=== PATIENT | female | born 1945 | race Caucasian/White ===

== ENCOUNTER 2020-01-07 13:27 | Outpatient (REF) | payer SELFPAY | END 2020-01-07 13:28 | disposition home or self-care (01) | LOC: HO.HAP 13:27 | PROVIDERS: Visit Provider Internal Medicine | DX: Z46.1 Encounter for fitting and adjustment of hearing aid (principal) ==

== ENCOUNTER 2020-05-24 08:03 | Outpatient (REF) | payer SELFPAY ==
--- NOTE | 2020-05-24 08:23 | MHC.AU.P13 ---
Hearing Instrument Maintenance Date of Visit: 05/24/20 Right Ear: Chainstitch Pants Outseamer: [employer] Model: AUDEO M70R Serial Number: [id number] Repair Warranty: 08/11/2022 ORIGINAL WARRANTY Loss and Damage Warranty: 08/11/2022 Battery Size: Rechargeable Color: CHAMPAGNE Duck Operator: 0M Type of Wax Guard: CERUSHIELD Left Ear: Chainstitch Pants Outseamer: [employer] Model: AUDEO M70R Serial Number: [id number] RepairWarranty: 08/11/2022 ORIGINAL WARRANTY Loss and Damage Warranty: 08/11/2022 Battery Size: Rechargeable Color: [place] Duck Operator: OM Type of Wax Guard: CERUSHIELD Follow-Up Summary: RON MAINT - Hearing aids cleaned, wax guards and open domes replaced - both amplifying clearly. Signature: Provider: DENNISE Kong-HIS
== END 2020-05-24 08:04 | disposition home or self-care (01) ==
LOC: HO.HAP 08:03
PROVIDERS: Visit Provider Internal Medicine
DX: Z13.89 Encounter for screening for other disorder (principal)

== ENCOUNTER 2020-11-29 08:42 | Outpatient (REF) | payer SELFPAY ==
--- NOTE | 2020-11-29 08:59 | MHC.AU.P13 ---
Hearing Instrument Problem Date of Visit: 11/29/20 Right Ear: Eyeglass Frame Truer: Phonak Model: AUDEO M70R Serial Number: [id number] Repair Warranty: 08/11/2022 ORIGINAL WARRANTY Loss and Damage Warranty: 08/11/2022 Battery Size: Rechargeable Color: [place]AMPAGNE Ict Help Desk Officer: 0M Type of Dome: SMALL OPEN Type of Wax Guard: CERUSHIELD Dispensed By: [facility] Date of Fittin05/28/2019 Left Ear: Eyeglass Frame Truer: Phonak Model: AUDEO M70R Serial Number: [id number] Repair Warranty: 08/11/2022 ORIGINAL WARRANTY Loss and Damage Warranty: 08/11/2022 Battery Size: Rechargeable Color: [place]AMPAGNE Ict Help Desk Officer: OM Type of Dome: MEDIUM OPEN Type of Wax Guard: CERUSHIELD Dispensed By: [facility] Date of Fittin05/28/2019 Follow-Up Summary: Aids brought in - right does not show lights when charging, although does charge - sent to [employer] for in warranty repair. Left aid cleaned, wax guard and medium open dome changed - amplifying clearly - given back to patient with flash welder. Recommendations: Recommendations: Patient will be contacted when materials have arrived. Signature: Provider: DENNISE Kong-HIS
== END 2020-11-29 08:43 | disposition home or self-care (01) ==
LOC: HO.HAP 08:42
PROVIDERS: Visit Provider Internal Medicine
DX: Z13.89 Encounter for screening for other disorder (principal)

== ENCOUNTER 2020-12-07 13:57 | Outpatient (REF) | payer SELFPAY | END 2020-12-07 13:58 | disposition home or self-care (01) | LOC: HO.HAP 13:57 | PROVIDERS: Visit Provider Internal Medicine | DX: Z13.89 Encounter for screening for other disorder (principal) ==

== ENCOUNTER 2021-04-05 16:41 | Outpatient (REF) | payer MEDICARE, SELFPAY | END 2021-04-05 16:42 | disposition home or self-care (01) | LOC: HO.LNP 16:41 | PROVIDERS: Visit Provider Physician Assistant Medical | DX: N39.0 Urinary tract infection, site not specified (principal) | CPT/HCPCS: 87086 ==

== ENCOUNTER 2021-05-23 07:59 | Outpatient (REF) | payer SELFPAY ==
--- NOTE | 2021-05-23 08:13 | MHC.AU.P13 ---
Hearing Instrument Maintenance Date of Visit: 05/23/21 Right Ear: Intelligence Officer Basic: Phonak Model: AUDEO M70R Serial Number: [id number] Repair Warranty: 08/11/2022 ORIGINAL WARRANTY Loss and Damage Warranty: 08/11/2022 Battery Size: Rechargeable Color: [place]AMP[place] Soliciting Freight Agent: 0M Type of Dome: SMALL OPEN Type of Wax Guard: CERUSHIELD Dispensed By: [facility] Date of Fittin05/28/2019 Left Ear: Intelligence Officer Basic: Phonak Model: AUDEO M70R Serial Number: [id number] Repair Warranty: 08/11/2022 ORIGINAL WARRANTY Loss and Damage Warranty: 08/11/2022 Battery Size: Rechargeable Color: [place] Soliciting Freight Agent: OM Type of Dome: MEDIUM OPEN Type of Wax Guard: CERUSHIELD Dispensed By: [facility] Date of Fittin05/28/2019 Follow-Up Summary: Hearing aid maintenance - aids cleaned, wax guards and domes replaced - both amplifying clearly. Recommendations: Recommendations: Hearing instrument follow-up or maintenance as needed. Diagnosis Code(s): Primary Diagnosis: H90.3 Bilateral Sensorineural Hearing Loss Signature: Provider: DENNISE Kong-HIS
== END 2021-05-23 08:00 | disposition home or self-care (01) ==
LOC: HO.HAP 07:59
PROVIDERS: Visit Provider Internal Medicine
DX: Z13.89 Encounter for screening for other disorder (principal)

== ENCOUNTER 2021-08-14 09:31 | Outpatient (REF) | payer MEDICARE, SELFPAY ==
[2021-08-14 09:59] LABS: Binax Now Covid-19 Ag Negative (Negative); Binax Performed by: HO.BONILM
[2021-08-14 10:00] LABS: Binax Internal Control QC Valid
== END 2021-08-14 09:32 | disposition home or self-care (01) ==
LOC: HO.HMGCLDS 09:31
PROVIDERS: Visit Provider Internal Medicine
DX: Z13.89 Encounter for screening for other disorder (principal)

== ENCOUNTER 2021-12-01 09:52 | Outpatient (REF) | payer MEDICARE, SELFPAY ==
[2021-12-01 10:48] LABS: Binax Now Covid-19 Ag Negative (Negative)
[2021-12-01 10:49] LABS: Binax Internal Control QC Valid
== END 2021-12-01 09:53 | disposition home or self-care (01) ==
LOC: HO.HMGCLDS 09:52
PROVIDERS: Visit Provider Physician Assistant Medical
DX: Z20.822 Contact with and (suspected) exposure to COVID-19 (principal)
CPT/HCPCS: 87811; C9803

== ENCOUNTER 2021-12-04 09:18 | Outpatient (REF) | payer MEDICARE, SELFPAY ==
--- NOTE | ~2021-12-04 | XR_ITS ---
EXAMINATION: XR CHEST CLINICAL INFORMATION: Cough unspecified COMPARISON: None TECHNIQUE: 2 views of the chest were obtained. FINDINGS: This study is abnormal. There is prominence to the right hilum. There are no prior studies for review. I would recommend a chest CT to exclude adenopathy. Heart size is normal. Pulmonary vessels are normal in caliber. The lungs are mostly clear with minimal chronic pleural blunting. 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 XR/XR chest 2V IMPRESSION: No active disease in the chest however a slightly prominent right hilum is noted. I would recommend a chest CT.
== END 2021-12-04 09:19 | disposition home or self-care (01) ==
LOC: HO.HMGCLDS 09:18
PROVIDERS: PCP Internal Medicine; Visit Provider Physician Assistant Medical
DX: R05.9 Cough, unspecified (principal)
CPT/HCPCS: 71046

== ENCOUNTER 2022-11-19 08:18 | Outpatient (AMB) | payer MEDICARE, SELFPAY ==
--- NOTE | 2022-11-19 08:46 | MHC.OFFWIV ---
Intake Vital Signs 11/19/22 08:50 Height 5 ft 1.5 in Weight 139 lb BMI 25.8 BP 124/72 Blood Pressure Location Lt brachial Position Sitting Pulse 86 Pulse Source Pulse Oximeter Temp 97.3 F Temp Source Temporal Artery Scan Pulse Oximetry (%) 96 Oxygen Delivery Method Room Air Intake Visit Reasons: EP, Intake Note: Pt is here c/o having a rash on her stomach. Pt states she used otc topical cream but it has not worked. Patient Tobacco Use Status: Former Tobacco user Allergies gold Au 198 [Gold Au-198] Allergy (Unknown, Verified 11/19/22 08:49) UNKNOWN amoxicillin [From AUGMENTIN] Adverse Reaction (Unknown, Verified 11/19/22 08:49) STOMACH UPSET clavulanic acid [From AUGMENTIN] Adverse Reaction (Unknown, Verified 11/19/22 08:49) STOMACH UPSET Do you need a note to return to daycare/school/sports/work: No HPI EP, HPI Details 77-year-old female patient presents today with a rash under her left breast. She reports this started about 1 month ago, and it was beneath both breasts. Over the last few weeks she treated this with desitin cream and it largely resolved, however there is a still an area beneath left breast which is red and she noticed was weeping some clear discharge last night. Denies any fever or chills. [facility] Social History Patient Tobacco Use Status: Former Tobacco user Review of Systems Const All systems reviewed & are unremarkable except as noted in HPI and below Physical Exam Vital Signs: Last Vital Signs Temp 97.3 F 11/19/22 08:50 Pulse 86 11/19/22 08:50 BP 124/72 11/19/22 08:50 Pulse Ox 96 11/19/22 08:50 Oxygen Delivery Method Room Air 11/19/22 08:50 BMI result Body Mass Index 25.8 Const General: cooperative, healthy appearing, comfortable and no acute distress Resp Effort & Inspection: normal respiratory effort and able to speak in complete sentences Skin Other: Beefy red rash beneath lateral aspect of left breast. No open areas. Extrem General: Yes capillary refill normal and Yes no clubbing, cyanosis or edema Psych Appearance: grossly normal Mental Status: mental status grossly normal Speech and movement: Normal speech and movement present Assessment & Plan Assessment & Plan (1) Candidiasis of skin: Code(s): B37.2 - Candidiasis of skin and nail Plan: Nystatin powder prescribed for fungal rash beneath left breast. I encouraged patient to utilize this under right breast if rash recurs there is well. Reviewed importance thoroughly drying skin following bathing. If rash does not improve of if it worsens, she should return to the for further evaluation. Medications: New nystatin Apply powder to dry skin beneath breasts twice daily until rash has resolved. 1 appl topical BID 30 grams 0RF 30 days B37.2 - Candidiasis of skin and nail Coding Level of Care Code Est Pt Level 3 (25430) Diagnoses Candidiasis of skin B37.2
[2022-11-19 08:50] VITALS: BP 124/72; PULSE 86; TEMP 36.3; O2SAT 96; BMI 25.8
== END 2022-11-19 09:21 | disposition home or self-care (01) ==
PROVIDERS: PCP Internal Medicine; Visit Provider Nurse Practitioner Family
DX: B37.2 Candidiasis of skin and nail (principal)
CPT/HCPCS: 99213